=== PATIENT | female | born 1940 | race Caucasian/White ===

== ENCOUNTER 2016-12-14 06:54 | Observation (INO) | payer OTHER, MEDICARE ==
[2016-12-14] MEDS ORDERED: MIDAZOLAM 2 MG/2 ML VIAL IVP ONE (06:58)
[2016-12-14] MEDS ORDERED: NS 1,000 ML IV ONE (06:58)
--- NOTE | 2016-12-14 07:15 | CPEKG ---
Heart Rate: 104 RR Interval: 577 P-R Interval: 165 QRSD Interval: 82 QT Interval: 364 QTC Interval: 479 P [place]: 0 QRS [place]: 20 T Wave [place]: 160 EKG Severity - ABNORMAL ECG - EKG Impression: Sinus rhythm, atrial tachycardia Electronically Signed By: Deshawn Mckinney 14-Dec-2016 13:15:00
[2016-12-14 07:40] LABS: % IMMATURE GRANULYOCYTES 0.4 % (0.0-1.1); ABSOLUTE IMMATURE GRANULOCYTES 0.03 10^3/uL (0.00-0.10); ADD DIFF? NO; ADD MORPH? NO; ADD SCAN? NO; ATYPICAL LYMPHOCYTE FLAG 0 (0-99); FRAGMENT RBC FLAG 0 (0-99); HEMATOCRIT 44.5 % (38.0-47.0); HEMOGLOBIN 15.4 g/dL (12.6-16.3); LEFT SHIFT FLG 0 (0-99); LIPEMIA HEMOLYSIS FLAG 90 (0-99); MEAN CELL HEMOGLOBIN 32.2 pg (27.9-34.1); MEAN CELL HEMOGLOBIN CONCENTR. 34.6 g/dL (32.4-36.7); MEAN CELL VOLUME 92.9 fL (81.5-99.8); PLATELET CLUMPS FLAG 0 (0-99); PLATELET COUNT 335 10^3/uL (150-400); RED BLOOD CELL COUNT 4.79 10^6/uL (4.18-5.33); RED CELL DISTRIBUTION WIDTH 12.7 % (11.5-15.2)
[2016-12-14 07:55] LABS: ANION GAP 15 mEq/L (8-16); CALCIUM 9.3 mg/dL (8.5-10.4); CARBON DIOXIDE 21 mEq/l (22-31); CHLORIDE 107 mEq/L (97-110); CREATININE 0.8 mg/dL (0.6-1.0); GLOMERULAR FILTRATION RATE > 60; GLUCOSE 194 mg/dL (70-100); INR 0.97 (0.83-1.16); MAGNESIUM 1.5 mg/dL (1.6-2.3); POTASSIUM 4.2 mEq/L (3.5-5.2); PROTIME(PATIENT) 12.8 SEC (12.0-15.0); SODIUM 143 mEq/L (134-144)
[2016-12-14 07:56] LABS: APTT 28.9 SEC (23.0-38.0)
[2016-12-14] MEDS ORDERED: HEPARIN 10,000 UNIT/10 ML MDV ONE (08:19)
[2016-12-14] MEDS ORDERED: BUPIVACAINE 0.5% 30 ML SDV ONE (08:19)
[2016-12-14] MEDS ORDERED: LIDOCAINE 1% 30 ML SDV ONE (08:19)
[2016-12-14] MEDS ORDERED: ISOPROTERENOL HCL 0.2 MG/ML 5ML AMP ONE (08:19)
[2016-12-14] MEDS ORDERED: ROCURONIUM 50 MG/5 ML VIAL ONE ×2 (08:41→09:30)
[2016-12-14] MEDS ORDERED: fentaNYL 100 MCG/2 ML INJ ONE (08:42)
[2016-12-14] MEDS ORDERED: PROPOFOL/EMULSION 500 MG/50 ML BOTTLE IV ONE (08:43)
[2016-12-14] MEDS ORDERED: PROPOFOL 200 MG/20 ML VIAL ONE ×2 (08:43→11:33)
[2016-12-14] MEDS ORDERED: PHENYLEPHRINE HCL 100 MCG/ML SYR ONE (09:17)
[2016-12-14] MEDS ORDERED: SUGAMMADEX SODIUM 200 MG/2 ML VIAL IVP ONE (12:05)
[2016-12-14] MEDS ORDERED: ACETAMINOPHEN 325 MG TAB PO PRN (12:06)
[2016-12-14] MEDS ORDERED: OXYCODONE/APAP 5/325 TAB PO PRN (12:06)
[2016-12-14] MEDS ORDERED: ONDANSETRON 4 MG/2 ML VIAL IVP PRN (12:06)
[2016-12-14] MEDS ORDERED: METOPROLOL TARTRATE 5 MG/5 ML INJ ONE (12:18)
--- NOTE | 2016-12-14 12:22 | EPPROC ---
Electrophysiology Procedure Note: ELECTROPHYSIOLOGIC STUDY AND CATHETER MEDIATED ABLATION OF FOCAL RIGHT ATRIAL TACHYCARDIA AND ATRIAL FLUTTER PROCEDURES PERFORMED: 1. EP evaluation with RA/RV/LA pace/record, with arrhythmia induction 2. EP evaluation with RA/RV pace record, insert/reposition catheter, with arrhythmia induction 3. Intracardiac catheter ablation, SVT arrhythmogenic focus 4. 3D mapping 5. Fluoroscopy 6. Second arrhythmia INDICATION: Atrial flutter Atrial tachycardia Catheters and anesthesia: The patient arrived in the Electrophysiology Laboratory in the fasting state. The right clavicular region, right groin, and left groin area were prepped and draped in the usual sterile manner. Anesthesiologist Dr. Kemi Quiroz administered general anesthesia. Appropriate non-invasive blood pressure, pulse oximetry and end-tidal CO2 monitoring was established. All catheters were placed percutaneously using the modified Seldinger technique , and advanced into position under fluoroscopic guidance. One #7 [place] Halo deflectable catheter with 10 pairs of electrodes was placed via the right femoral vein into the coronary sinus and tricuspid annulus. L femoral arterial access #7Fr catheter. Programmed stimulation was performed from the right atrium, left atrium ( coronary sinus) and right ventricle. Parahisian pacing demonstrated all retrograde conduction over the AV node Heparin was administered to keep ACT > 200 seconds. There was conduction across CT isthmus from prior ablation. Atrial flutter, CL 300 ms was also induced. 3.5 mm irrigated Carto catheter was placed in the RA via Agilis sheath. RF application in the mid CT isthmus achieved bidirectional conduction block which persisted for the rest of the case. Septal to lateral conduction time 155 ms. Programmed stimulation of right atrium during infusion of isoproterenol 1 mcg/ min induced an atrial tachycardia. CL 400 ms. RF application just outside the CS was unsuccessful. To avoid RF ablation in the floor of the proximal CS, a 6mm cryo catheter was placed in the floor of the proximal CS. Cryoapplications at this site terminated AT and rendered it non inducible. Programmed stimulation in the baseline state and during infusion of isoproterenol 1 mcg/min and isoproterenol bolus 2 mcg post ablation was performed. No tachycardia could be induced. The catheters were removed. The patient was transferred to the cardiovascular holding area in stable condition. Vascular access sheaths were removed in the holding area. There were no apparent complications. CONCLUSIONS: 1. Focal atrial tachycardia arising from the floor of the proximal coronary sinus. 2. Successful ablation of focal atrial tachycardia. 3. Recurrent conduction across the cavotricupsid isthmus and atrial flutter. Ablation in CT isthmus achieved bidirectional conduction block. 4. No apparent complications. Patient Problems: Problems Problem Status Diagnosed Atrial flutter Acute
[2016-12-14] MEDS ORDERED: ATROPINE SULFATE 1 MG/10 ML SYR ONE (13:05)
[2016-12-14 13:59] LABS: ANION GAP 11 mEq/L (8-16); CARBON DIOXIDE 23 mEq/l (22-31); CHLORIDE 109 mEq/L (97-110); CREATININE 0.9 mg/dL (0.6-1.0); GLOMERULAR FILTRATION RATE > 60; GLUCOSE 195 mg/dL (70-100); MAGNESIUM 1.4 mg/dL (1.6-2.3); POTASSIUM 4.5 mEq/L (3.5-5.2); SODIUM 143 mEq/L (134-144)
[2016-12-14 14:14] LABS: CALCIUM 7.9 mg/dL (8.5-10.4)
[2016-12-14] MEDS: LEVOTHYROXINE 100 MCG TAB PO SCH (19:01)
[2016-12-14] MEDS: metFORMIN HCL 500 MG TAB PO SCH (19:02)
[2016-12-14] MEDS ORDERED: ATORVASTATIN CALCIUM 20 MG TAB PO SCH (21:00)
[2016-12-14] MEDS: METOPROLOL TARTRATE 25 MG TAB PO SCH (21:06)
[2016-12-15 04:50] VITALS: TEMP 98.6; O2SAT 92
[2016-12-15 05:11] LABS: % IMMATURE GRANULYOCYTES 0.3 % (0.0-1.1); ABSOLUTE IMMATURE GRANULOCYTES 0.03 10^3/uL (0.00-0.10); ADD DIFF? NO; ADD MORPH? NO; ADD SCAN? NO; ATYPICAL LYMPHOCYTE FLAG 0 (0-99); FRAGMENT RBC FLAG 0 (0-99); HEMATOCRIT 38.8 % (38.0-47.0); LEFT SHIFT FLG 0 (0-99); LIPEMIA HEMOLYSIS FLAG 80 (0-99); MEAN CELL HEMOGLOBIN 31.5 pg (27.9-34.1); MEAN CELL HEMOGLOBIN CONCENTR. 33.5 g/dL (32.4-36.7); MEAN CELL VOLUME 93.9 fL (81.5-99.8); MEAN PLATELET VOLUME 9.1 fL (8.7-11.7); PLATELET CLUMPS FLAG 0 (0-99); PLATELET COUNT 285 10^3/uL (150-400); RED BLOOD CELL COUNT 4.13 10^6/uL (4.18-5.33); RED CELL DISTRIBUTION WIDTH 12.9 % (11.5-15.2)
[2016-12-15 05:25] LABS: INR 0.98 (0.83-1.16); PROTIME(PATIENT) 12.9 SEC (12.0-15.0)
[2016-12-15 05:53] LABS: ANION GAP 11 mEq/L (8-16); CALCIUM 8.6 mg/dL (8.5-10.4); CARBON DIOXIDE 25 mEq/l (22-31); CHLORIDE 108 mEq/L (97-110); CREATININE 0.8 mg/dL (0.6-1.0); GLOMERULAR FILTRATION RATE > 60; GLUCOSE 112 mg/dL (70-100); SODIUM 144 mEq/L (134-144)
[2016-12-15 06:13] LABS: CK-MB INTERPRETATION POSITIVE (NEGATIVE)
[2016-12-15 06:14] LABS: TROPONIN I 0.736 ng/mL (0-0.034)
[2016-12-15 07:41] VITALS: BP 130/72; PULSE 75; RESP 94
--- NOTE | 2016-12-15 08:44 | CPEKG ---
Heart Rate: 67 RR Interval: 896 P-R Interval: 228 QRSD Interval: 84 QT Interval: 468 QTC Interval: 494 P [place]: 63 QRS [place]: 26 T Wave [place]: 106 EKG Severity - ABNORMAL ECG - EKG Impression: SINUS RHYTHM EKG Impression: FIRST DEGREE AV BLOCK EKG Impression: NONSPECIFIC T ABNORMALITIES, LATERAL LEADS EKG Impression: BORDERLINE PROLONGED QT INTERVAL Electronically Signed By: Deshawn Mckinney 15-Dec-2016 11:10:21
[2016-12-15] MEDS: METOPROLOL TARTRATE 25 MG TAB PO SCH (08:47)
[2016-12-15] MEDS: metFORMIN HCL 500 MG TAB PO SCH (08:47)
[2016-12-15] MEDS: LEVOTHYROXINE 100 MCG TAB PO SCH (08:49)
[2016-12-15] MEDS ORDERED: LOSARTAN POTASSIUM 50 MG TAB PO SCH (09:00)
--- NOTE | 2016-12-15 09:17 | ECHO ---
[id number] + + [address] : : [place] [address] : : [phone] + + Adult Echocardiographic Report + ----+ :Name: CAROLYNE TROY SStudy Date: 12/15/2016 07:40 AM : : Hospital Admission Number: [id number] : :: 1940 Gender: Female Height: 67 i n : :Age: 76 yrs Race: WH Weight: 170 lb : :Reason For Study: Post EP Study : : BSA: 1.9 met ers2: :History: Previous EP : + ----+ MMode/2D Measurements & Calculations IVSd: 0.90 cm RVDd: 3.0 cm FS: 51.0 % LVOT diam: 2.0 cm LVPWd: 1.0 cm LVIDd: 4.3 cm EDV(Teich): LVOT area: LVIDs: 2.1 cm 85.2 ml 3.2 cm2 ESV(Teich): 14.9 ml EF(Teich): 82.5 % LVLd ap4: 7.4 cm SV(MOD-sp4): EDV(MOD-sp4): 59.0 ml 79.0 ml LVLs ap4: 6.4 cm ESV(MOD-sp4): 20.0 ml EF(MOD-sp4): 74.7 % Normal Measurement Values: + + :LVIDd (3.5-5.7cm) IVSd (0.6-1.1cm) LVPWd (0.6-1.1cm) Aortic Root (2.0-3.7cm)Left Atrium (1.5-4.0cm): :LV Vol(d) (76-115ml) LV Vol(s) (29-48ml) Ejec Fraction (50-65%)PV Jared (0.6- 1.2m/s) TV Jared (0.4-1.0m/s) : :MV E Jared (0.8-1.0m/s)MV A Jared (0.3-1.0m/s)LVOT Jared (0.7-1.2m/s) Asc Ao Jared ( 0.9-1.8m/s) : + + Doppler Measurements & Calculations MV E max jared: MV V2 max: Ao V2 max: LV V1 mean P.0 cm/sec 97.7 cm/sec 116.4 cm/sec 1.6 mmHg MV A max jared: MV max PG: Ao max PG: LV V1 mean: 76.0 cm/sec 3.8 mmHg 5.4 mmHg 58.8 cm/sec MV E/A: 1.0 MV V2 mean: Ao mean PG: LV V1 VTI: 19.3 cm MV dec time: 66.3 cm/sec 2.8 mmHg 0.26 sec MV mean PG: Ao V2 mean: 2.0 mmHg 78.7 cm/sec MV V2 VTI: 28.5 cmAo V2 VTI: 24.1 cm MVA(VTI): 2.2 cm2 PATRICK(I,D): 2.6 cm2 MR max jared: SV(LVOT): 62.5 ml PA V2 max: PI end-d jared: 394.4 cm/sec 74.9 cm/sec 88.0 cm/sec MR max PG: PA max P.2 mmHg 2.2 mmHg TR max jared: 259.4 cm/sec TR max P.9 mmHg RAP systole: 10.0 mmHg RVSP(TR): 36.9 mmHg Left Ventricle The left ventricle is normal in size and function. There is normal left ventricular wall thickness. Ejection Fraction = 70%. There is Doppler evidence for diastolic dysfunction. No regional wall motion abnormalities noted. Right Ventricle The right ventricle is normal in size and function. Atria The left atrial size is normal. Right atrial size is normal. The interatrial septum is intact with no evidence for an atrial septal defect. Mitral Valve The mitral valve is normal in structure and function. There is no mitral valve stenosis. There is mild mitral regurgitation. Tricuspid Valve The tricuspid valve is normal in structure and function. There is no tricuspid stenosis. There is mild tricuspid regurgitation. Right ventricular systolic pressure is normal. Aortic Valve The aortic valve is normal in structure and function. There is no aortic stenosis. There is no aortic insufficiency. Pulmonic Valve The pulmonic valve is normal in structure and function. There is no pulmonic valvular stenosis. Trace pulmonic valvular regurgitation. Great Vessels The aortic root is normal size. Pericardium/Pleural There is no pericardial effusion. There is a fat pad seen. Conclusion A complete two-dimensional transthoracic echocardiogram was performed (2D, M-mode, Doppler and color flow Doppler). The left ventricle is normal in size and function. Ejection Fraction = 70%. There is Doppler evidence for diastolic dysfunction. The interatrial septum is intact with no evidence for an atrial septal defect. There is mild mitral regurgitation. There is mild tricuspid regurgitation. Right ventricular systolic pressure is normal. The aortic valve is normal in structure and function. Trace pulmonic valvular regurgitation. There is no pericardial effusion. Final Reading Physician: Deshawn Mckinney MD electronically signed on 12/15/2016 09:16 AM Ordering Physician: Deshawn Mckinney Performed By: Ashley Hook
--- NOTE | 2016-12-16 10:55 | GDS ---
[f rep st] DISCHARGE SUMMARY ADMIT DIAGNOSES: 1. Supraventricular tachycardia/atrial flutter. 2. Planned EP study with possible ablation. DISCHARGE DIAGNOSIS: Status post atrial flutter and atrial tachycardia ablation. HOSPITAL COURSE: The patient was previously seen in the clinic for evaluation and treatment of atria l flutter, and tachycardia. She has failed medical therapy and it was recommended to proceed with scar ctrophysiology study and possible ablation. She was taken to the electrophysiology lab by Dr. Deshawn Mckinney on 12/14/2016 where he was able to isolate and perform successful atrial flutter ablation and atr ial tachycardia ablation. She has had no groin bleeding post ablation procedure. She has been walking with no problems. She will restart her Eliquis on to avoid increased bleeding. At this time she currently is stable for discharge. ALLERGIES: She is allergic to LILY inhibitors and sulfasalazine. MEDICATIONS: She will go home on Cozaar 100 mg daily; Elavil 10-30 mg at bedtime; Zocor 40 mg at bed time; metformin 1000 mg twice daily; herbal supplements daily; Eliquis 5 mg twice daily starting morning 12/16/2016; metoprolol tartrate 25 mg twice daily; Synthroid 100 mcg Tuesday, Tuesday, , , Tuesday, and Tuesday; Tylenol 325 mg 1-2 tablets every 4 hours as needed for pain, not to exceed 3 g daily. EXAM: On day of discharge, her blood pressure was 130/72, heart rate 75 and regular, temperature 37 Celsius, oxygen saturation 92%. HEART: Cardiac rhythm, normal sinus rhythm. Heart rate regular. No mu rmurs, rubs, gallops. PULMONARY: Lung sounds are clear to auscultation. No wheezes, rales, or rhonchi . Bilateral groin sites are intact with no bleeding, induration, ecchymosis or tenderness. Peripheral pulses are 2+ bilaterally, lower extremities. Her echocardiogram on 12/15/2016 showed an ejection fraction of 70%. No pericardial effusion. No atri al septal defect noted. DISCHARGE PLAN: She will follow up with Dr. Mckinney in 1 month. Groin precautions were reviewed with her and written information provided. She understands no heavy lifting, pushing, pulling greater than 10 pounds for 1 week. No sitting in a tub of water for 1 week. No aggressive exercise for 2 weeks. Jennifer guerrero her groin sites bleed, she has to hold firm pressure and go directly to the emergency room. At thi s time she currently is stable for discharge. /[id number]/MODL
== END 2016-12-15 11:49 | disposition home or self-care (01) ==
LOC: FCATH 06:54 → F2W 12:06
PROVIDERS: ADMIT Internal Medicine Cardiovascular Disease; ATTEND Internal Medicine Cardiovascular Disease
PROC: B2161ZZ Fluoroscopy of Right and Left Heart using Low Osmolar Contrast (ICD-10-PCS; principal; 2016-12-14)
PROC: 5A1223Z Performance of Cardiac Pacing, Continuous (ICD-10-PCS; principal; 2016-12-14)
PROC: 02573ZZ Destruction of Left Atrium, Percutaneous Approach (ICD-10-PCS; principal; 2016-12-14)
PROC: 02K83ZZ Map Conduction Mechanism, Percutaneous Approach (ICD-10-PCS; principal; 2016-12-14)
PROC: 025K3ZZ Destruction of Right Ventricle, Percutaneous Approach (ICD-10-PCS; principal; 2016-12-14)
PROC: 02563ZZ Destruction of Right Atrium, Percutaneous Approach (ICD-10-PCS; principal; 2016-12-14)
DX: I47.1 Supraventricular tachycardia (principal); I48.92 Unspecified atrial flutter; I10 Essential (primary) hypertension; Z88.2 Allergy status to sulfonamides
CPT/HCPCS: 93005; 93306; 93613; 93621; 93623; 93653; 93655; C1731; C1732; C1733; C1766; J1644; J2250; J2370; J2704; J3010; J0461

== ENCOUNTER → 2017-01-13 | Outpatient (CLI) | payer OTHER, MEDICARE | LOC: BHFA 14:30 | PROVIDERS: ATTEND Internal Medicine Cardiovascular Disease | DX: I48.92 Unspecified atrial flutter (principal); I47.1 Supraventricular tachycardia ==

== ENCOUNTER → 2017-02-24 | Outpatient (CLI) | payer OTHER, MEDICARE | LOC: BHFA 09:45 | PROVIDERS: ATTEND Internal Medicine Cardiovascular Disease | DX: I48.92 Unspecified atrial flutter (principal); I47.1 Supraventricular tachycardia; I10 Essential (primary) hypertension; E11.9 Type 2 diabetes mellitus without complications ==

== ENCOUNTER → 2018-02-01 | Outpatient (CLI) | payer OTHER, MEDICARE | LOC: BHFA 13:15 | PROVIDERS: ATTEND Internal Medicine Cardiovascular Disease | DX: I48.91 Unspecified atrial fibrillation (principal); I10 Essential (primary) hypertension ==

== ENCOUNTER → 2019-03-13 | Outpatient (CLI) | payer OTHER, MEDICARE | LOC: BHFA 10:45 | PROVIDERS: ATTEND Internal Medicine Cardiovascular Disease | DX: R07.89 Other chest pain (principal); R00.2 Palpitations ==